=== PATIENT | male | born 1960 | race Caucasian/White ===

== ENCOUNTER → 2025-06-14 15:14 | Outpatient (REF) | payer BC, SELFPAY | LOC: HWRAD 15:14 | PROVIDERS: ATTENDING PHYSICIAN Internal Medicine | DX: K81.0 Acute cholecystitis (principal) | CPT/HCPCS: 76700 ==

== ENCOUNTER 2025-07-27 06:21 | Day surgery (SDC) | payer BC, SELFPAY | END 2025-07-27 10:48 | disposition home or self-care (01) | LOC: GI 06:21 | PROVIDERS: ATTENDING PHYSICIAN Internal Medicine Gastroenterology; FAMILY PHYSICIAN Internal Medicine | DX: Z12.11 Encounter for screening for malignant neoplasm of colon (principal); K51.40 Inflammatory polyps of colon without complications; K57.30 Diverticulosis of large intestine without perforation or abscess without bleeding; K56.600 Partial intestinal obstruction, unspecified as to cause; K64.8 Other hemorrhoids; Z86.0100 Personal history of colon polyps, unspecified; K51.20 Ulcerative (chronic) proctitis without complications | CPT/HCPCS: 45385; 45381; 88305 ==

== ENCOUNTER 2025-08-27 06:30 | Day surgery (SDC) | payer BC, SELFPAY ==
[2025-08-22 13:48] VITALS: BMI 27.8
[2025-08-27] VITALS (9 sets, daily range): BP systolic 112–145; BP diastolic 68–88; BMI 28.0
[2025-08-27] MEDS: IC GREEN 2.5 MG IV (11:31)
[2025-08-27] MEDS: TYLENOL 1000 MG PO (11:33)
[2025-08-27] MEDS: HEPARIN 5000 UNITS SC (11:33)
[2025-08-27] MEDS: NORMOSOL-R/PLASMALYTE-A 1000 IV (11:33)
--- NOTE | 2025-08-27 13:30 | OR.RPT ---
Operative Report
Operative Report
Primary Surgeon: Yazmin
Assisting: Paulo MCKEON
Pre-op Diagnosis: Biliary colic
Post-op Diagnosis: Chronic calculous cholecystitis
Procedure Performed: Robot assisted laparoscopic cholecystectomy and intraoperative near infra-red imaging of major extrahepatic bile ducts
Anesthesia Type: GETA
Specimen / Cultures: GETA
Estimated Blood Loss: 10cc
Complications: None immediate
Operative Findings: Moderately scarred gallbladder wall with obliterated fibrotic posterior plane
DOS: 08/27/25
Indications: This 65M developed right upper quadrant/epigastric pain and on workup was found to have cholelithiasis, with normal sized ducts. Laparoscopic cholecystectomy with robotic assist was elected.
Description of procedure: The patient was placed on the operating table in the supine position. General anesthesia was induced. A time-out was completed verifying correct patient, procedure, site, positioning, and special equipment prior to
beginning this procedure. An orogastric tube was placed. The abdomen was prepped and draped in the usual sterile fashion. A stab incision was made in left upper quadrant and the Veress needle was inserted. Proper position was confirmed by aspiration
and saline meniscus test. The abdomen was insufflated with carbon dioxide to a pressure of 12 mmHg. The patient tolerated insufflation well.
An 8mm optical trocar was then inserted in the left upper quadrant. The laparoscope was inserted and the abdomen inspected. No injuries from initial trocar placement or Veress needle insertion were noted. An umbilical/incisional hernia was noted
with bowel and omental contents. This was avoided. Additional 8mm trocars were then inserted in the following locations: above the umbilicus, right mid clavicular line at the level of the umbilicus and 6cm lateral to this on the right. The abdomen
was inspected and no abnormalities were found. The table was placed in the reverse Trendelenburg position with the right side up. The dome of the gallbladder was grasped with an atraumatic grasper and retracted over the dome of the liver. The
infundibulum was grasped with an atraumatic grasper and retracted toward the right lower quadrant. This maneuver exposed Calot�s triangle. The cystic duct and cystic artery were dissected out until the only two structures entering the gallbladder
were these two structures. The cystic and common ducts were imaged with ICG and anatomy verified. A large Calot's node was dissected down away from the artery. The common duct was protected.
The cystic artery was controlled with bipolar and divided. The cystic duct was doubly clipped and divided. The gallbladder was dissected free from the liver bed. The posterior plane was fibrotic. Hemostasis was assured and the gallbladder and
contained stones were removed using an endoscopic retrieval bag placed through the umbilical port. The gallbladder was passed off the table as a specimen. There was no evidence of bleeding from the gallbladder fossa or cystic artery or leakage of
the bile from the cystic duct stump. The umbilical trocar site was closed at the fascial level laparoscopically with 2-0 PDS. Secondary trocars were removed under direct vision and noted to be hemostatic. The laparoscope was withdrawn and the
umbilical trocar removed. The abdomen was allowed to collapse. The skin was closed with subcuticular sutures of 4-0 monocryl and topical skin adhesive. The orogastric tube was removed.
The patient tolerated the procedure well and was taken to the postanesthesia care unit in stable condition.
[2025-08-27] MEDS: SUBLIMAZE 50 MCG IV ×3 (14:04→14:27)
[2025-08-27] MEDS: ZOFRAN 4 MG IV (14:13)
[2025-08-27] MEDS: ROXICODONE 10 MG PO (15:01)
== END 2025-08-27 15:35 | disposition home or self-care (01) ==
LOC: SDS 06:30
PROVIDERS: ATTENDING PHYSICIAN Surgery; FAMILY PHYSICIAN Internal Medicine
DX: K81.2 Acute cholecystitis with chronic cholecystitis (principal); K82.8 Other specified diseases of gallbladder; K80.10 Calculus of gallbladder with chronic cholecystitis without obstruction
CPT/HCPCS: 47562; 88304; 93005